=== PATIENT | female | born 1980 | race Caucasian/White ===

== ENCOUNTER 2017-09-02 12:49 | Emergency (ER) | payer SELFPAY ==
[~2017-09-02] VITALS: Ht 160 cm; Wt 54.5 kg
[~2017-09-02 12:49] MED LIST: ASPIRIN 32325 MG/TAB PO; DOLOPHINE HCL5 MG PO
[2017-09-02 12:58] VITALS: BP 129/78; TEMP 98.5
[2017-09-02 14:25] VITALS: PULSE 88
== END 2017-09-02 14:26 | disposition home or self-care (01) ==
LOC: COL.ER 12:49
DX: G43.909 Migraine, unspecified, not intractable, without status migrainosus (principal)
CPT/HCPCS: J1200; J1885; J2765; J7030

== ENCOUNTER 2018-10-25 20:39 | Emergency (ER) | payer OTHER ==
[~2018-10-25] VITALS: Ht 160 cm; Wt 65.9 kg
[2018-10-25 20:47] VITALS: TEMP 98.3
[2018-10-25] MEDS ORDERED: CELEXA10 MG PO (22:31)
[2018-10-25] MEDS ORDERED: FLEXERIL 1010 MG/TAB PO (23:09)
[2018-10-25 23:35] VITALS: BP 126/86; PULSE 91
== END 2018-10-25 23:45 | disposition home or self-care (01) ==
LOC: COL.ER 20:39
DX: S16.1XXA Strain of muscle, fascia and tendon at neck level, initial encounter (principal); F32.9 Major depressive disorder, single episode, unspecified; V89.2XXA Person injured in unspecified motor-vehicle accident, traffic, initial encounter
CPT/HCPCS: J1885

== ENCOUNTER → 2019-07-11 | Outpatient (CLI) | payer OTHER ==
[~2019-07-11] MED LIST changes: +CELEXA10 MG PO; +FLEXERIL 1010 MG/TAB PO
== END ==
LOC: COL.LAB 17:30
DX: Z01.89 Encounter for other specified special examinations (principal)

== ENCOUNTER 2020-12-03 05:34 | Emergency (ER) | payer SELFPAY ==
[~2020-12-03] VITALS: Ht 160 cm; Wt 61.4 kg
[2020-12-03 05:50] VITALS: TEMP 97.7
[2020-12-03 06:56] LABS: BASO # 0.1 (0.0-0.2); BASO % 0.4 % (0.0-2.0); EOS # 0.2 (0.0-0.7); GRAN # 12.1 (1.4-6.5); GRAN % 80.4 % (42.2-75.2); HEMATOCRIT 42.3 % (37.0-47.0); LYMPH # 1.6 (1.2-3.4); LYMPH % 10.9 % (20.0-51.0); MEAN CELL VOLUME 96 fl (80.0-100.0); MEAN CORPUSCULAR HEMOGLOBIN 32 pg (27.0-31.0); MEAN CORPUSCULAR HGB CONC 33 g/dl (33.0-37.0); MEAN PLATELET VOLUME 11.4 fl (7.4-10.4); MONO % 6.9 % (1.7-9.3); PLATELET COUNT 258 K/mm3 (130-400); RED BLOOD COUNT 4.39 M/mm3 (4.10-5.30); REDCELL DISTRIBUTION WIDTH-CV 11.9 % (11.5-14.5)
[2020-12-03 07:06] LABS: ALBUMIN 3.7 gm/dL (3.5-5.0); BILIRUBIN,TOTAL 0.8 mg/dL (0.0-1.0); CALCIUM 8.7 mg/dL (8.4-10.2); CREATININE, serum 0.55 (0.52-1.25); POTASSIUM 3.3 mmol/L (3.4-5.0)
[2020-12-03 07:29] LABS: TRICYCLIC ANTIDEPRESS URINE NEGATIVE
[2020-12-03 08:17] LABS: PH 6 (5-8); URINE APPEARANCE Hazy; URINE BACTERIA Rare /hpf; URINE BILIRUBIN Negative (NEGATIVE); URINE BLOOD 2+ (NEGATIVE); URINE COLOR Yellow; URINE GLUCOSE Negative (NEGATIVE); URINE KETONE Negative (NEGATIVE); URINE LEUKOCYTE ESTERASE 2+ (NEGATIVE); URINE NITRATE Negative (NEGATIVE); URINE PROTEIN(semi-quant) Negative (NEGATIVE); URINE UROBILINOGEN Negative (NEGATIVE)
[2020-12-03 08:21] LABS: COLLECTION METHOD CLEAN CATCH
[2020-12-03 12:16] VITALS: BP 106/65; PULSE 83
== END 2020-12-03 12:16 | disposition home or self-care (01) ==
LOC: COL.ER 05:34
PROVIDERS: Emergency Medicine
DX: R10.11 Right upper quadrant pain (principal); R10.31 Right lower quadrant pain; R11.0 Nausea; R50.9 Fever, unspecified; Z20.822 Contact with and (suspected) exposure to COVID-19
CPT/HCPCS: J0696; J2270; J2405; J7030; Q9967